=== PATIENT | male | born 2000 | race Caucasian/White ===

== ENCOUNTER 2018-09-10 10:36 | Emergency (ER) | payer OTHER ==
[~2018-09-10] VITALS: Ht 172.7 cm; Wt 63.6 kg
[2018-09-10] MEDS ORDERED: IBUP-1022 PO (10:44)
[2018-09-10 13:59] VITALS: BP 115/59
--- NOTE | 2018-09-10 15:12 | REP ---
MAXILLOFACIAL CT WITHOUT CONTRAST: HISTORY: Injury. Minimal mucosal thickening is present in the maxillary sinuses. The remaining sinuses are clear. The osteomeatal units are patent. The middle and inferior nasal turbinates are partially paradoxical. There is isidoro bullosa of the middle nasal turbinates. There is minimal deviation of the nasal septum to the right. The cribriform plate, medial horton of the orbits, and optic canals are intact. The carotid canals form a segment of the posterolateral horton of the sphenoid sinus. There is a nondisplaced fracture of the right zygoma. Contents of the orbits are normal. IMPRESSION: 1. Sinus mucosal thickening as described above. 2 . Right zygoma fracture. Electronically Signed by Austin Francisco MD 09/10/2018 03:28 P
== END 2018-09-10 14:07 | disposition home or self-care (01) ==
LOC: M ED 10:36
DX: S02.40EA Zygomatic fracture, right side, initial encounter for closed fracture (principal); W50.0XXA Accidental hit or strike by another person, initial encounter; Y92.89 Other specified places as the place of occurrence of the external cause; Y93.89 Activity, other specified; Y99.1 Military activity

== ENCOUNTER 2019-01-04 14:23 | Emergency (ER) | payer OTHER ==
[~2019-01-04] VITALS: Ht 172.7 cm; Wt 64.9 kg
[~2019-01-04 14:23] MED LIST: IBUP-1022 PO
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
[2019-01-04] MEDS ORDERED: ONDA4TAB6 PO (15:26)
[2019-01-04] MEDS ORDERED: KETOROLAC TROMETHAMINE 10 MG TAB PO ONE (15:30)
[2019-01-04 15:43] VITALS: BP 123/59
== END 2019-01-04 15:46 | disposition home or self-care (01) ==
LOC: M ED 14:23
DX: S06.0X9A Concussion with loss of consciousness of unspecified duration, initial encounter (principal); X58.XXXA Exposure to other specified factors, initial encounter; Y92.89 Other specified places as the place of occurrence of the external cause; Y93.89 Activity, other specified; Y99.1 Military activity

== ENCOUNTER 2019-04-02 18:24 | Emergency (ER) | payer OTHER ==
[~2019-04-02] VITALS: Ht 172.7 cm; Wt 61.4 kg
[~2019-04-02 18:24] MED LIST changes: +ONDA4TAB6 PO
[2019-04-02] MEDS ORDERED: ONDANSETRON 4MG/2ML VIAL (J2405) IV ONE (19:00)
[2019-04-02] MEDS ORDERED: NS 1,000 ML IV ONE ×2 (19:00→22:30)
[2019-04-02] MEDS ORDERED: MORPHINE 4 MG/ML 1ML VIAL/SYRINGE (J2270) IV ONE (19:00)
[2019-04-02] MEDS ORDERED: ISOVUE-370 76% 100ML VIAL (Q9967) As Ordered ONE (19:38)
[2019-04-02 19:48] LABS: BASO % 0.4 % (0.0-1.0); EOS # 0.2 10^3/uL (0.0-0.5); HEMATOCRIT 39.3 % (42.0-52.0); HEMOGLOBIN 12.7 g/dl (13.5-17.5); LYMPH # 1.9 10^3/uL (1.5-5.0); LYMPH % 20.3 % (24.0-44.0); MEAN CORPUSCULAR HGB CONC 32.3 g/dl (32.0-36.5); MEAN CORPUSCULAR VOLUME 86.6 fl (80.0-96.0); MONO # 0.8 10^3/uL (0.0-0.8); MONO % 8.9 % (0.0-5.0); NEUTROPHILS # 6.4 10^3/uL (1.5-8.5); NEUTROPHILS % 67.9 % (36.0-66.0); PLATELET COUNT, AUTOMATED 250 10^3/uL (150-450); RED BLOOD COUNT 4.54 10^6/uL (4.30-6.10); WHITE BLOOD COUNT 9.5 10^3/uL (4.0-10.0)
[2019-04-02 20:19] LABS: APPEARANCE, URINE CLEAR (CLEAR); BACTERIA, URINE AUTO NEGATIVE (NEGATIVE); BILIRUBIN, URINE AUTO NEGATIVE (NEGATIVE); BLOOD, URINE BLOOD NEGATIVE (NEGATIVE); COLOR, URINE STRAW (YELLOW); GLUCOSE, URINE (UA) AUTO NEGATIVE (NEGATIVE); KETONE, URINE AUTO NEGATIVE (NEGATIVE); LEUKOCYTE ESTERASE, URINE AUTO NEGATIVE (NEGATIVE); NITRITE, URINE AUTO NEGATIVE (NEGATIVE); PROTEIN, URINE AUTO NEGATIVE (NEGATIVE); RBC, URINE AUTO 1 /HPF (0-3); SQUAMOUS EPITHELIAL CELL UR AU 0 /HPF (0-6); UROBILINOGEN, URINE AUTO 0.2 mg/dL (0.0-2.0); WBC, URINE AUTO 1 /HPF (0-3)
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
[2019-04-02] MEDS ORDERED: METHOCARBAMOL 1,000 MG/10 ML VIAL (J2800) IV ONE (21:30)
[2019-04-02] MEDS ORDERED: NAPR-837 PO (22:14)
[2019-04-02] MEDS ORDERED: ROBA750T4 PO (22:14)
[2019-04-02 22:51] VITALS: BP 150/70
== END 2019-04-02 22:53 | disposition home or self-care (01) ==
LOC: M ED 18:24 → EDBD 18:24 → M ED 22:53
DX: M54.9 Dorsalgia, unspecified (principal); M54.2 Cervicalgia; R10.84 Generalized abdominal pain; V43.52XA Car driver injured in collision with other type car in traffic accident, initial encounter; Y92.9 Unspecified place or not applicable; Y93.9 Activity, unspecified; Y99.9 Unspecified external cause status
CPT/HCPCS: 70450; 72125; 72128; 72131; 74177; 80047; 81001; 85025; 96374; 96375; 99284; J2270; J2405; J2800; Q9967

== ENCOUNTER 2020-01-14 17:44 | Inpatient (IN) | payer OTHER ==
[~2020-01-14] VITALS: Ht 172.7 cm; Wt 63.5 kg
[~2020-01-14 17:44] MED LIST changes: +NAPR-837 PO; +ROBA750T4 PO
[2020-01-14 18:20] LABS: HEMATOCRIT 45.7 % (42.0-52.0); HEMOGLOBIN 15.4 g/dl (13.5-17.5); MEAN CORPUSCULAR HEMOGLOBIN 28.5 pg (27.0-33.0); MEAN CORPUSCULAR HGB CONC 33.7 g/dl (32.0-36.5); MEAN CORPUSCULAR VOLUME 84.5 fl (80.0-96.0); PLATELET COUNT, AUTOMATED 269 10^3/uL (150-450); RED BLOOD COUNT 5.41 10^6/uL (4.30-6.10); WHITE BLOOD COUNT 8.1 10^3/uL (4.0-10.0)
[2020-01-14 18:48] LABS: AMPHETAMINES LEVEL URINE NEGATIVE (NEGATIVE); BARBITURATES URINE NEGATIVE (NEGATIVE); BENZODIAZEPINES URINE NEGATIVE (NEGATIVE); CANNABINOIDS URINE NEGATIVE (NEGATIVE); COCAINE METABOLITE URINE NEGATIVE (NEGATIVE); METHADONE URINE NEGATIVE (NEGATIVE); OPIATES URINE NEGATIVE (NEGATIVE); PHENCYCLIDINE URINE NEGATIVE (NEGATIVE)
[2020-01-14 19:16] LABS: ACETAMINOPHEN LEVEL < 2.0 UG/ML (10.0-30.0); ALBUMIN 4.6 GM/DL (3.2-5.2); ALT/SGPT 89 U/L (12-78); BILIRUBIN,DIRECT 0.2 MG/DL (0.0-0.2); BILIRUBIN,TOTAL 0.8 MG/DL (0.2-1.0); BLOOD UREA NITROGEN 8 MG/DL (7-18); CALCIUM LEVEL 8.8 MG/DL (8.5-10.1); CARBON DIOXIDE LEVEL 28 MEQ/L (21-32); CHLORIDE LEVEL 108 MEQ/L (98-107); CREATININE FOR GFR 0.99 MG/DL (0.70-1.30); ETHYL ALCOHOL (ETHANOL) 0.167 % (0.000-0.010); GLOMERULAR FILTRATION RATE > 60.0 (>60); GLUCOSE, FASTING 112 MG/DL (70-100); SALICYLATE LEVEL < 1.7 MG/DL (5.0-30.0); SODIUM LEVEL 140 MEQ/L (136-145)
[2020-01-14] MEDS: ACETAMINOPHEN TAB 650MG DOSE (2X325MG) PO ONE ×2 (20:30→20:46)
[2020-01-14] MEDS ORDERED: ACETAMINOPHEN TAB 650MG DOSE (2X325MG) PO PRN (22:30)
[2020-01-14] MEDS ORDERED: MOM 30ML SUSPENSION UDC PO PRN (22:30)
[2020-01-14] MEDS ORDERED: LORazepam 2 MG TAB PO PRN (22:30)
[2020-01-14] MEDS ORDERED: traZODone 50 MG TAB PO PRN (22:30)
[2020-01-14] MEDS ORDERED: MAALOX 30 ML SUSP *UDC PO PRN (22:30)
[2020-01-14 23:01] VITALS: BP 135/74
[2020-01-14 23:22] VITALS: BP 135/74
[2020-01-15 06:22] VITALS: BP 142/90
[2020-01-15 06:23] VITALS: BP 142/90
[2020-01-15] MEDS ORDERED: FOLIC ACID 1 MG TAB PO SCH (09:00)
[2020-01-15] MEDS ORDERED: MULTIVITAMINS/MINERALS THERAP 1 TAB PO SCH (09:00)
[2020-01-15] MEDS: THIAMINE 100 MG TAB PO SCH ×2 (09:26→21:52)
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
[2020-01-15 14:40] VITALS: BP 120/70
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
[2020-01-15 16:19] VITALS: BP 122/70
[2020-01-15 22:26] VITALS: BP 119/72
[2020-01-16 06:16] VITALS: BP 147/61
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
[2020-01-17 06:25] VITALS: BP 101/68
--- NOTE | 2020-01-17 09:24 | MHDSPDOC ---
[facility] Discharge Summary Discharge Summary DATE OF ADMISSION: Jan 14, 2020 at 22:25 DATE OF DISCHARGE: Jan 17, 2020 at 12:05 DISCHARGE DIAGNOSES: F43.20 Adjustment disorder, unspecified Alcohol use CONSULTANTS INVOLVED:[ None (basic hospitalist screening)] REASON FOR ADMISSION & TREATMENT AND PROGRESS ON THE UNIT : The patient was admitted to the inpatient mental health unit after he had reportedly been drinking made a suicide note and had considered hanging himself. He reported that when he had arrived that this was primarily part of alcohol. He was found on initial evaluation to be quite pathetic engaged in talkative. He reported that he had had no other mental health problems and engaged welding unit. He was friendly and amenable understanding and easily engaged. He declined any medications for alcohol or depression and reported that he wanted to try to work on things as an outpatient and try to improve himself he was observed for well over three days where he did well and generally didn't exhibit any concerning behavior. He was released, after he did not mean further involuntary criteria. DISCHARGE ASSESSMENT[improved] Legal status considerations: The patient at the time of discharge did not meet criteria for involuntary admission/extension due to having a [normal] mental status exam, [fair] insight into the situation, They are engaged in the discharge process, as well as being friendly and amenable in behavioral control and havent been engaging in any obs erved concerning behavior or ideation recently. They decline voluntary extension/admission at this time and must be discharged in good sejal, as Im unable to make a case for holding the patient against their will. They may have historical risk factors of admissions and other interactions with psychiatry however, those are not modifiable from a clinical perspective. The patient will need to be discharged in good sejal. MENTAL STATUS EXAMINATION ON DISCHARGE: [General: Well dressed with good hygiene Speech: Spontaneous and fluid Thought processes: Linear and logical Thought content: Future orientated Abstract reasoning, and computation: Intact Description of associations: Intact Description of abnormal or psychotic thoughts:Denies any suicidal or homicidal ideation. Denies any auditory or visual hallucinations. Does not appear to be responding to internal stimuli. Does not appear to be endorsing any bizarre or paranoid ideation. Judgment: fair Insight: fair Orientation: Alert and orientated 3 Recent and remote memory: Intact Attention span and concentration: Intact Fund of knowledge: Adequate Mood: "okay" Affect: Euthymic with a full range] PLAN/FOLLOWUP ARRANGEMENTS: Follow up appointments made (PCP and MH in 5 days of D/C date) and safety plan completed. Safety Planning aspects completed prior to discharge [DOD: Weapons Profile 30 days] [Family contact completed, educated on safe practices, instructed on removal and mitigation of dangerous means] [RN reviewed crisis hotline information and other aspects to empower patient to access care in interim before next appointment.] The amount of time spent in the coordination of care for this patient was approximately 30 minutes. Vital Signs/I&Os Vital Signs Date Time Temp Pulse Resp B/P (MAP) Pulse Ox O2 Delivery O2 Flow Rate FiO2 01/17/20 06:25 98.7 84 16 101/68 (79) 100 Room Air Medications No Active Prescriptions or Reported Meds Allergies Coded Allergies: No Known Allergies (Unverified , 09/10/18) ALIREZA LEE DO Jan 17, 2020 09:24
== END 2020-01-17 12:05 | disposition home or self-care (01) | DRG 882 ==
LOC: M ED 17:44 → M ED INP 22:25 → M PSY 22:58
PROVIDERS: ADMIT Psychiatry & Neurology Addiction Medicine; ATTEND Psychiatry & Neurology Addiction Medicine
DX: F43.20 Adjustment disorder, unspecified (principal); F10.99 Alcohol use, unspecified with unspecified alcohol-induced disorder; R45.851 Suicidal ideations

== ENCOUNTER → 2020-07-24 | Outpatient (CLI) | payer OTHER ==
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
--- NOTE | 2020-07-24 18:16 | REP ---
INDICATION: KNEE/FEMUR PAIN(+)NARVAEZ'S,SMALL EFFUSION/LESION. COMPARISON: None. TECHNIQUE: Axial, coronal and sagittal imaging planes utilized. T1 and T2 weighted scans are included with without fat saturation. FINDINGS: Cortical and medullary bone signal intensity are normal in the femur. No posttraumatic deformity is appreciated. Skeletal muscle signal intensity is normal on T1 and T2 weighted scans. No vascular abnormality is seen. No soft tissue mass, cyst or other abnormal fluid collection is seen. IMPRESSION: Unremarkable MRI study of the right femur. <Electronically signed by Larry Ayon > 07/24/20 [id number]
== END ==
LOC: M PLARAD 15:12
PROVIDERS: ATTEND Physician Assistant
DX: M25.561 Pain in right knee (principal)

== ENCOUNTER 2020-09-17 13:07 | Emergency (ER) | payer OTHER ==
[~2020-09-17] VITALS: Ht 172.7 cm; Wt 63.6 kg
[2020-09-17 15:34] LABS: RSV AMPLIFICATION NEGATIVE (NEGATIVE)
[2020-09-17 15:56] VITALS: BP 125/67
== END 2020-09-17 16:03 | disposition home or self-care (01) ==
LOC: M ED 13:07
DX: R19.7 Diarrhea, unspecified (principal)